=== PATIENT | male | born 1930 | race Caucasian/White ===

== ENCOUNTER 2017-10-21 11:05 | Emergency (ER) | payer MEDICARE ==
[2017-10-21 11:06] VITALS: BMI 30.7
[2017-10-21 11:16] VITALS: TEMP 97.5; O2SAT 95
[2017-10-21 12:45] LABS: BASO # 0.1 K/uL (0.0-0.2); EOS # 0.3 K/uL (0.0-0.7); EOS % 4.9 % (0.0-4.0); HEMATOCRIT 33.7 % (35.0-51.0); LYMPH # 1.7 K/uL (1.0-4.3); LYMPH % 28.3 % (20.0-40.0); MEAN CELL VOLUME 89.7 fL (80.0-94.0); MEAN CORPUSCULAR HEMOGLOBIN 29.7 pg (27.0-31.0); MEAN CORPUSCULAR HGB CONC 33.1 g/dL (33.0-37.0); MEAN PLATELET VOLUME 8.5 fL (7.2-11.7); MONO # 0.7 K/uL (0.0-0.8); MONO % 10.9 % (0.0-10.0); NRBC % 0.1 % (0.0-2.0); RED CELL DISTRIBUTION WIDTH 14.2 % (11.5-14.5); WHITE BLOOD COUNT 6.1 K/uL (4.8-10.8)
[2017-10-21 12:53] LABS: ALB/GLOB RATIO 0.9 (1.0-2.1); BILIRUBIN,TOTAL 0.6 mg/dL (0.2-1.3); CALCIUM 8.4 mg/dl (8.6-10.4); POTASSIUM 4.7 mmol/L (3.6-5.2); TOTAL PROTEIN 7.6 g/dL (6.3-8.3)
--- NOTE | 2017-10-21 13:29 | RAD ---
Chest x-ray two views History: Shortness of breath. Comparison: 08/05/2015 Findings: Mild venous congestion. Small nodular density at the left lung base may represent vessel on end. Left-sided pacemaker. Mild cardiomegaly. Calcification at the aortic knob. Degenerative changes in the spine and shoulders. Impression: Mild venous congestion.
[2017-10-21 14:00] VITALS: BP 107/60; PULSE 90; RESP 18
--- NOTE | 2017-10-21 14:53 | C.PDOC ---
History Of Present Illness 87yo male, presents for evaluation of persistent cough for the past month for which he has already seen his PCP 3-4 times. Patient denies any chest pain, shortness of breath, fever. He has no other complaints. Time Seen by Provider: 10/21/17 11:39 Chief Complaint (Nursing): Flu-like Symptoms History Per: Patient History/Exam Limitations: no limitations Onset/Duration Of Symptoms: Persistent Current Symptoms Are (Timing): Still Present Associated Symptoms: Cough. denies: Fever Past Medical History Reviewed: Historical Data, Nursing Documentation, Vital Signs Vital Signs: Last Vital Signs Temp 97.5 F L 10/21/17 11:13 Pulse 90 10/21/17 14:00 Resp 18 10/21/17 14:00 BP 107/60 10/21/17 14:00 Pulse Ox 95 10/21/17 14:55 - Medical History PMH: CAD, Cardia Arrhythmia, HTN, Peripheral Edema Surgical History: Appendectomy, Endoscopy, Pacemaker Family History: States: Unknown Family Hx - Social History Hx Tobacco Use: No Hx Alcohol Use: No Hx Substance Use: No - Immunization History Hx Tetanus Toxoid Vaccination: No Hx Influenza Vaccination: Yes Hx Pneumococcal Vaccination: Yes Review Of Systems Except As Marked, All Systems Reviewed And Found Negative. Constitutional: Negative for: Fever Cardiovascular: Negative for: Chest Pain Respiratory: Positive for: Cough. Negative for: Shortness of Breath Physical Exam - Physical Exam Appears: Non-toxic Skin: Normal Color Head: Atraumatic, Normacephalic Eye(s): bilateral: Normal Inspection Nose: Normal Neck: Supple Cardiovascular: Rhythm Regular Respiratory: Rales (minimal rales at bases) Extremity: Normal ROM, Pedal Edema (2+ pitting edema bilaterally), No Deformity Neurological/Psych: Oriented x3 ED Course And Treatment - Laboratory Results Result Diagrams: 10/21/17 12:37 10/21/17 12:37 O2 Sat by Pulse Oximetry: 95 (RA) Progress Note: Case discussed with Dr. Laws who knows patient well; reviwed lab results and agrees with plan to give Lasix 40 IVP and to discharge patient with prescription for lasix. Disposition - Disposition Referrals: Holli Nunez, [Non-Staff] - Disposition: HOME/ ROUTINE Disposition Time: 13:30 Condition: GOOD Additional Instructions: Thank you for letting us take care of you today. The emergency medical care you received today was directed at your acute symptoms. If you were prescribed any medication, please fill it and take as directed. It may take several days for your symptoms to resolve. Return to the Emergency Department if your symptoms worsen, do not improve, or if you have any other problems. Please contact your doctor or call one of the physicians/clinics you have been referred to that are listed on the Patient Visit Information form that is included in your discharge packet. Bring any paperwork you were given at discharge with you along with any medications you are taking to your follow up visit. Our treatment cannot replace ongoing medical care by a primary care provider (PCP) outside of the emergency department. [facility]. Follow up with your doctor as scheduled for re-evaluation. Prescriptions: Furosemide [Lasix] 40 mg PO DAILY #5 tab Instructions: Heart Failure (ED) Forms: Gen Discharge Inst Mongolian Print Language: SWEDISH - Clinical Impression Clinical Impression: Cough - Scribe Statement The provider has reviewed the documentation as recorded by the Arina Garcia Provider Attestation: All medical record entries made by the Arina were at my direction and personally dictated by me. I have reviewed the chart and agree that the record accurately reflects my personal performance of the history, physical exam, medical decision making, and the department course for this patient. I have also personally directed, reviewed, and agree with the discharge instructions and disposition.
== END 2017-10-21 14:25 | disposition home or self-care (01) ==
LOC: C.ER 11:05
DX: R05 Cough (principal); I10 Essential (primary) hypertension; I25.10 Atherosclerotic heart disease of native coronary artery without angina pectoris
CPT/HCPCS: 71020; 80053; 83880; 85025; 87804; 96374; 99285; J1940

== ENCOUNTER 2018-08-05 07:10 | Day surgery (SDC) | payer MEDICARE ==
[2018-08-05] MEDS ORDERED: Lidocaine 2 Grams in D5W 2,000 MG/500 ML BAG IV ONE (08:39)
[2018-08-05] MEDS ORDERED: Verapamil 2 ML ONE (08:39)
[2018-08-05] MEDS ORDERED: Lidocaine 2% PF (10 ml) Amp ONE (08:39)
[2018-08-05] MEDS ORDERED: Nitroglycerin 50mg in D5W 50 MG/250 ML BOTTLE IV ONE (08:40)
[2018-08-05] MEDS ORDERED: Midazolam 2 MG/2 ML VIAL ONE (08:40)
[2018-08-05] MEDS ORDERED: Iodixanol 320 MG/ML 100 ML BOTTLE IV ONE (08:40)
[2018-08-05 10:03] VITALS: BMI 42.2
== END 2018-08-05 14:20 | disposition home or self-care (01) ==
LOC: C.CATHLAB 07:10
PROVIDERS: ATTEND Internal Medicine Cardiovascular Disease
DX: I11.0 Hypertensive heart disease with heart failure (principal); I50.9 Heart failure, unspecified; I48.91 Unspecified atrial fibrillation; Z95.0 Presence of cardiac pacemaker; E11.9 Type 2 diabetes mellitus without complications
CPT/HCPCS: 82948; 93458; 99152; 99153; C1769; C1887; C1893; J1644; J2250; J3010; Q9967

== ENCOUNTER 2018-08-07 22:24 | Inpatient (IN) | payer MEDICARE ==
[2018-08-07 23:08] LABS: BASO % 0.3 % (0.0-2.0); EOS # 0.2 K/uL (0.0-0.7); HEMOGLOBIN 11.4 g/dL (12.0-18.0); LYMPH # 2.1 K/uL (1.0-4.3); LYMPH % 27.2 % (20.0-40.0); MEAN CELL VOLUME 91.3 fL (80.0-94.0); MEAN CORPUSCULAR HEMOGLOBIN 31.2 pg (27.0-31.0); MEAN CORPUSCULAR HGB CONC 34.2 g/dL (33.0-37.0); MEAN PLATELET VOLUME 8.2 fL (7.2-11.7); MONO # 0.6 K/uL (0.0-0.8); MONO % 7.8 % (0.0-10.0); NEUT # 4.8 K/uL (1.8-7.0); NEUT % 61.7 % (50.0-75.0); NRBC % 0.1 % (0.0-2.0); RBC 3.66 Mil/uL (4.40-5.90); RED CELL DISTRIBUTION WIDTH 15.4 % (11.5-14.5); WHITE BLOOD COUNT 7.7 K/uL (4.8-10.8)
--- NOTE | 2018-08-07 23:22 | C.PDOC ---
History Of Present Illness 88 year old male presents to the ER after his defibrillator fired twice within 15 minutes followed by a warm flushed feeling after each firing. Patient states he was sitting at home watching TV when it occurred. Patient was seen by Dr. Contreras 2 days ago. Denies LOC, SOB, nausea, or vomiting. <Duy Gibbons - Last Filed: 08/08/18 00:56> History Per: Patient History/Exam Limitations: no limitations Onset/Duration Of Symptoms: Mins Current Symptoms Are (Timing): Gone Associated Symptoms: denies: Nausea, Dyspnea, Diaphoresis, Syncope Modifying Factors: None Exacerbating Factors: None Alleviating Factors: None Recent travel outside of the [place]: No <Duy Gibbons - Last Filed: 08/08/18 00:56> <Cassandra Bustamante - Last Filed: 08/08/18 05:48> Time Seen by Provider: 08/07/18 23:03 Chief Complaint (Nursing): Chest Pain Past Medical History Reviewed: Historical Data, Nursing Documentation, Vital Signs Vital Signs: Last Vital Signs Temp 97.4 F L 08/07/18 22:43 Pulse 84 08/07/18 22:43 Resp 16 08/07/18 22:43 BP 133/66 08/07/18 22:43 Pulse Ox 97 08/07/18 22:43 - Medical History PMH: CAD, Cardia Arrhythmia, CHF (for 10 years), HTN, Peripheral Edema Surgical History: Appendectomy, Endoscopy, Pacemaker Family History: States: Unknown Family Hx - Social History Hx Tobacco Use: No Hx Alcohol Use: No Hx Substance Use: No - Immunization History Hx Tetanus Toxoid Vaccination: No Hx Influenza Vaccination: Yes Hx Pneumococcal Vaccination: Yes <Duy Gibbons - Last Filed: 08/08/18 00:56> Vital Signs: Last Vital Signs Temp 98.6 F 08/08/18 01:35 Pulse 86 08/08/18 03:24 Resp 20 08/08/18 03:24 BP 101/65 08/08/18 03:24 Pulse Ox 97 08/08/18 03:24 <Cassandra Bustamante - Last Filed: 08/08/18 05:48> Review Of Systems Constitutional: Negative for: Fever, Chills Cardiovascular: Positive for: Other (Defibrillator firing). Negative for: Chest Pain, Palpitations Respiratory: Negative for: Cough, Shortness of Breath Gastrointestinal: Negative for: Nausea, Vomiting Neurological: Negative for: Weakness, Numbness <Duy Gibbons - Last Filed: 08/08/18 00:56> Physical Exam - Physical Exam Appears: Non-toxic Skin: Normal Color, Warm, Dry Head: Atraumatic, Normacephalic Eye(s): bilateral: Normal Inspection Oral Mucosa: Moist Neck: Normal, Supple Chest: No Tenderness Cardiovascular: Rhythm Regular, Murmur (crescendo and decrescendo best heard at right upper chest) Respiratory: Normal Breath Sounds, No Rales, No Rhonchi, No Wheezing Gastrointestinal/Abdominal: Soft, No Tenderness Neurological/Psych: Oriented x3, Normal Speech <Duy Gibbons - Last Filed: 08/08/18 00:56> ED Course And Treatment - Laboratory Results Result Diagrams: 08/07/18 23:11 ECG Rhythm: AV Paced ECG Interpretation: Normal Rate From EC O2 Sat by Pulse Oximetry: 97 Pulse Ox Interpretation: Normal - Radiology CXR: Interpreted by Sc CXR Interpretation: Yes: No Acute Disease Reevaluation Time: 00:57 Reassessment Condition: Unchanged (remains asymptomatic) - Physician Consult Information Outcome Of Conversation: 2314: d/w Dr. Contreras- will eval in AM. 2315: calls for Dr. Laws, pending call-back and CMP <Duy Gibbons - Last Filed: 08/08/18 00:56> - Laboratory Results Result Diagrams: 08/07/18 23:11 08/08/18 00:46 <Cassandra Bustamante - Last Filed: 08/08/18 05:48> Progress - Re-Evaluation Re-evaluation Note: 08/08/18 04:45 CALLED TO BEDSIDE BY RN. PS RECUR AICD DC, FIRST SINCE ER EVAL. NOW ASYMPT. +VTACH ON MONITOR, RESOLVED AFTER AICD. REPEAT EKG PACED @ 87. FAMILY STATES AICD PLACED 1 YR AGO, TODAY FIRST DC SINCE PLACEMENT. S/P ANGIO 1 WK AGO FOR AORTIC STENOSIS EVAL PENDING VALVE PROCEDURE. 08/08/18 05:21 MULT RECUR VTACH. RECUR VTACH @ 180. SBP 110 .PS "I DONT FEEL ANYTHING BEFORE IT HAPPENS, IT JUST HAPPENS". D/W DR CONTRERAS AWARE OF ER FINIDNGS. D/W PACEMAKER REP JONNA [phone] FOR INTERROGATION. AMIODARONE BEING LOADED. 08/08/18 05:27 D/W DR RUSHING CF ICU WILL EVAL D/W DR BURROUGHS AWARE OF ER FINDINGS WILL ADMIT 08/08/18 05:48 ACCEPTED FOR ICU - Data Reviewed Data Reviewed: Lab, Diagnostic imaging, EKG, Old records - Critical Care Citical Care: Excluding Proc Time Critical Care Time: 90 minutes <Cassandra Bustamante - Last Filed: 08/08/18 05:48> Medical Decision Making Medical Decision Makin defib fired x 2 pending labs and adm <Duy Gibbons - Last Filed: 08/08/18 00:56> Disposition - Disposition Disposition Time: 01:00 <Duy Gibbons - Last Filed: 08/08/18 00:56> Counseled Patient/Family Regarding: Studies Performed, Diagnosis - POA Present On Arrival: None <Cassandra Bustamante - Last Filed: 08/08/18 05:48> - Disposition Disposition: HOSPITALIZED Condition: CRITICAL - Clinical Impression Clinical Impression: Defibrillator discharge, Ventricular tachycardia - Scribe Statement The provider has reviewed the documentation as recorded by the Scribe Santo Colbert All medical record entries made by the Scribe were at my direction and personally dictated by me. I have reviewed the chart and agree that the record accurately reflects my personal performance of the history, physical exam, medical decision making, and the department course for this patient. I have also personally directed, reviewed, and agree with the discharge instructions and disposition. <Duy Gibbons - Last Filed: 08/08/18 00:56>
[2018-08-07 23:26] LABS: INR 1.1; PROTHROMBIN TIME 11.8 SECONDS (9.7-12.2)
[2018-08-08 01:01] LABS: ALB/GLOB RATIO 1.1 (1.0-2.1); ALBUMIN 3.4 g/dL (3.5-5.0); ALT/SGPT 21 U/L (21-72); AST/SGOT 11 U/L (17-59); BLOOD UREA NITROGEN 33 mg/dL (9-20); CALCIUM 8.7 mg/dl (8.6-10.4); GFR NON-AFRICAN AMERICAN 57
[2018-08-08 01:13] LABS: B-TYPE NATRIURETIC PEPTIDE 1310 pg/mL (0-900)
[2018-08-08] MEDS ORDERED: Magnesium Sulfate 1 gm in D5W 1 GM/100 ML BAG IVPB ONE (05:19)
[2018-08-08] MEDS ORDERED: Magnesium Sulfate 1 gm in D5W 1 GM/100 ML BAG IV ONE (05:20)
[2018-08-08] MEDS ORDERED: Amiodarone 150mg/3 ml vial ONE (05:21)
[2018-08-08] MEDS ORDERED: Morphine 4 MG/ML VIAL ONE (06:08)
[2018-08-08] MEDS ORDERED: Heparin25000 units/250ml 1/2NS 25,000 UNITS/250 ML BAG IV PRN (06:09)
[2018-08-08] MEDS ORDERED: Lidocaine 100 MG in Sodium Chloride 0.9% 100 ML IV ONE ×3 (06:09→07:33)
[2018-08-08 06:27] VITALS: BMI 29.5
[2018-08-08] MEDS ORDERED: Morphine 4 MG/ML VIAL IV ONE (06:35)
--- NOTE | 2018-08-08 06:41 | CP.PCM.CON ---
History of Present Illness - History of Present Illness History of Present Illness: 88 year old male with HTN,CAD,Hyperlipidemia,arrhythmia, AICD,Pacemaker presents to the ER after his defibrillator fired twice within 15 minutes followed by a warm flushed feeling after each firing. Patient states he was sitting at home watching TV when it occurred. Denies LOC, SOB, nausea, or vomiting.In ER and ICU patient had multiple episodes of V tach Patient started on Amiodarone and lidocaine IV On 08/05/18 patient had a Cardiac cath which showed a tight aortic valve as reported by the son Review of Systems - Constitutional Constitutional: absent: Fever, Lethargy - EENT Eyes: absent: Blurred Vision Nose/Mouth/Throat: absent: Nasal Congestion, Hoarsness, Sore Throat - Cardiovascular Cardiovascular: Leg Edema. absent: Chest Pain, Palpitations - Respiratory Respiratory: absent: Cough, Dyspnea - Gastrointestinal Gastrointestinal: absent: Abdominal Pain, Nausea, Vomiting - Genitourinary Genitourinary: absent: Dysuria - Musculoskeletal Musculoskeletal: absent: Muscle Weakness - Integumentary Integumentary: absent: Rash - Neurological Neurological: absent: Dizziness, Weakness - Endocrine Endocrine: absent: Fatigue, Polyuria - Hematologic/Lymphatic Hematologic: absent: Easy Bleeding Past Patient History - Infectious Disease Hx of Infectious Diseases: None - Past Medical History & Family History Past Medical History?: Yes - Past Social History Smoking Status: Never Smoked Occupation: tax staff accountant Alcohol: None Drugs: Denies - CARDIAC Hx Cardia Arrhythmia: Yes Hx Congestive Heart Failure: Yes (for 10 years) Hx Hypertension: Yes Hx Pacemaker: Yes Hx Peripheral Edema: Yes - ENDOCRINE/METABOLIC Hx Endocrine Disorders: Yes Hx Diabetes Mellitus Type 2: Yes - MUSCULOSKELETAL/RHEUMATOLOGICAL Hx Musculoskeletal Disorders: Yes Hx Osteoarthritis: Yes (knees) - GASTROINTESTINAL Hx Gastrointestinal Disorders: Yes Hx Bowel Surgery: Yes - GENITOURINARY/GYNECOLOGICAL Hx Genitourinary Disorders: Yes Hx Prostate Problems: Yes - PSYCHIATRIC Hx Substance Use: No - SURGICAL HISTORY Hx Appendectomy: Yes - ANESTHESIA Hx Anesthesia: Yes Hx Anesthesia Reactions: No Hx Malignant Hyperthermia: No Meds Allergies/Adverse Reactions: Allergies Allergy/AdvReac Type Severity Reaction Status Date / Time Penicillins Allergy Intermediate RASH Verified 08/07/18 22:41 - Medications Medications: Current Medications Heparin Sodium (Porcine) (Heparin) 6,700 units 70 units/kg (6700 units) IV ONCE ONE Stop: 08/08/18 06:35 Amiodarone HCl 900 mg/ (Dextrose) 500 mls @ 33.33 mls/hr IV .Q15H1M ONE; Protocol Stop: 08/08/18 20:20 Heparin Sodium/Sodium Chloride (Heparin 64274 Units/250ml 1/2 Normal Saline) 25,000 units in 250 mls @ 11.539 mls/hr IV .[id number] PRN; Protocol PRN Reason: PROTOCOL Lidocaine 100 mg/ Sodium (Chloride) 105 mls @ 630 mls/hr IV ONCE ONE Stop: 08/08/18 06:10 Lidocaine HCl/Dextrose (Lidocaine 2 Grams In D5w) 2,000 mg in 500 mls @ 15 mls/hr IV .Q24H JANNA; Protocol Morphine Sulfate (Morphine) 4 mg IV ONCE ONE Stop: 08/08/18 06:36 Physical Exam - Constitutional Appears: No Acute Distress - Head Exam Head Exam: ATRAUMATIC, NORMAL INSPECTION, NORMOCEPHALIC - Eye Exam Eye Exam: EOMI, Normal appearance - ENT Exam ENT Exam: Mucous Membranes Moist - Neck Exam Neck exam: Positive for: Normal Inspection - Respiratory Exam Respiratory Exam: Clear to Auscultation Bilateral, NORMAL BREATHING PATTERN - Cardiovascular Exam Cardiovascular Exam: REGULAR RHYTHM - GI/Abdominal Exam GI & Abdominal Exam: Normal Bowel Sounds, Soft - Extremities Exam Extremities exam: Positive for: pedal edema. Negative for: calf tenderness - Neurological Exam Neurological exam: Alert, CN II-XII Intact, Oriented x3 - Skin Skin Exam: Normal Color, Warm Results - Vital Signs Recent Vital Signs: Last Vital Signs Temp 98.6 F 08/08/18 01:35 Pulse 120 H 08/08/18 06:12 Resp 16 08/08/18 06:12 BP 109/70 08/08/18 06:12 Pulse Ox 95 08/08/18 06:12 - Labs Result Diagrams: 08/07/18 23:11 08/08/18 00:46 Labs: Laboratory Results - last 24 hr 08/07/18 08/07/18 08/08/18 23:11 23:19 00:46 WBC 7.7 RBC 3.66 L Hgb 11.4 L Hct 33.4 L MCV 91.3 MCH 31.2 H MCHC 34.2 RDW 15.4 H Plt Count 186 MPV 8.2 Neut % (Auto) 61.7 Lymph % (Auto) 27.2 [place] % (Auto) 7.8 Eos % (Auto) 3.0 Baso % (Auto) 0.3 Neut # (Auto) 4.8 Lymph # (Auto) 2.1 [place] # (Auto) 0.6 Eos # (Auto) 0.2 Baso # (Auto) 0.0 PT 11.8 INR 1.1 APTT 23 Sodium 137 Potassium 3.9 Chloride 103 Carbon Dioxide 26 Anion Gap 12 BUN 33 H Creatinine 1.2 Est GFR ( Amer) > 60 Est GFR (Non-Af Amer) 57 Random Glucose 112 H Calcium 8.7 Magnesium Total Bilirubin 0.6 AST 11 L D ALT 21 D Alkaline Phosphatase 93 Troponin I 0.0490 NT-Pro-B Natriuret Pep 1310 H Total Protein 6.6 Albumin 3.4 L Globulin 3.2 Albumin/Globulin Ratio 1.1 08/08/18 04:56 WBC RBC Hgb Hct MCV MCH MCHC RDW Plt Count MPV Neut % (Auto) Lymph % (Auto) [place] % (Auto) Eos % (Auto) Baso % (Auto) Neut # (Auto) Lymph # (Auto) [place] # (Auto) Eos # (Auto) Baso # (Auto) PT INR APTT Sodium Potassium Chloride Carbon Dioxide Anion Gap BUN Creatinine Est GFR ( Amer) Est GFR (Non-Af Amer) Random Glucose Calcium Magnesium 1.9 Total Bilirubin AST ALT Alkaline Phosphatase Troponin I NT-Pro-B Natriuret Pep Total Protein Albumin Globulin Albumin/Globulin Ratio - EKG Data EKG Interpreted by: Myself Assessment & Plan - Assessment and Plan (Free Text) Assessment: 1.Ventricular arrhythmia with multiple AICD discharges on amiodarone and lidocaine drips 2.CAD /HTN/CHF/ Hyperlipidemia- restart home meds Discussed with Dr Garcia and Perrin
[2018-08-08] MEDS ORDERED: Lidocaine 2 Grams in D5W 2,000 MG/500 ML BAG IV SCH (06:45)
[2018-08-08] MEDS ORDERED: Sodium Chloride 0.9% 1,000 ML IV SCH (07:15)
--- NOTE | 2018-08-08 08:18 | RAD ---
Date of service: 08/08/2018 HISTORY: adm COMPARISON: 10/21/2017. FINDINGS: LUNGS: The lungs are clear. There are low lung volumes which may be related to poor inspiratory effort. PLEURA: No significant pleural effusion identified, no pneumothorax apparent. CARDIOVASCULAR: There is moderate cardiomegaly. There is a left-sided permanent pacing device. OSSEOUS STRUCTURES: No significant abnormalities. VISUALIZED UPPER ABDOMEN: Normal. OTHER FINDINGS: None. IMPRESSION: No acute findings. Persistent moderate cardiomegaly.
[2018-08-08 10:35] LABS: SQUAMOUS EPITHIAL < 1 /hpf (0-5); URINE BILIRUBIN NEGATIVE (NEGATIVE); URINE BLOOD NEGATIVE (NEGATIVE); URINE CLARITY Clear (Clear); URINE COLOR Yellow (YELLOW); URINE GLUCOSE (UA) NORMAL (Normal); URINE HYALINE CAST 0-2 /lpf (0-2); URINE LEUKOCYTE ESTERASE NEG Leu/uL (Negative); URINE PROTEIN NEGATIVE (NEGATIVE); URINE UROBILINOGEN NORMAL mg/dL (0.2-1.0)
[2018-08-08 13:47] VITALS: PULSE 80
[2018-08-08 13:59] VITALS: TEMP 91.8
[2018-08-08 14:25] LABS: BASO # 0.1 K/uL (0.0-0.2); BASO % 1.6 % (0.0-2.0); EOS # 0.1 K/uL (0.0-0.7); EOS % 1.6 % (0.0-4.0); HEMOGLOBIN 11.4 g/dL (12.0-18.0); MEAN CELL VOLUME 91.5 fL (80.0-94.0); MEAN CORPUSCULAR HEMOGLOBIN 30.9 pg (27.0-31.0); MEAN CORPUSCULAR HGB CONC 33.8 g/dL (33.0-37.0); MEAN PLATELET VOLUME 7.8 fL (7.2-11.7); MONO # 0.6 K/uL (0.0-0.8); MONO % 7.6 % (0.0-10.0); NEUT # 4.7 K/uL (1.8-7.0); NEUT % 62.2 % (50.0-75.0); RBC 3.69 Mil/uL (4.40-5.90); RED CELL DISTRIBUTION WIDTH 15.5 % (11.5-14.5); WHITE BLOOD COUNT 7.6 K/uL (4.8-10.8)
[2018-08-08 15:05] LABS: ALBUMIN 3.4 g/dL (3.5-5.0); ALT/SGPT 20 U/L (21-72); AST/SGOT 19 U/L (17-59); BLOOD UREA NITROGEN 32 mg/dL (9-20); CALCIUM 9.1 mg/dl (8.6-10.4); GFR NON-AFRICAN AMERICAN 52
[2018-08-08 16:20] LABS: CK-MB 3.57 ng/mL (0.0-3.38)
[2018-08-08 17:00] VITALS: BP 133/76; RESP 14; O2SAT 94
--- NOTE | 2018-08-11 10:58 | CARD ---
APPROVED REPORT Date of service: 08/08/2018 EKG Measurement Heart [id number] <Conclusion> Ventricular-paced rhythm with occasional supraventricular complexes Abnormal ECG
--- NOTE | 2018-08-11 11:03 | CARD ---
APPROVED REPORT Date of service: 08/07/2018 EKG Measurement Heart [id number] [place] [id number] <Conclusion> AV dual-paced rhythm with occasional ventricular-paced complexes and with occasional premature ventricular complexes Abnormal ECG
== END 2018-08-08 16:40 | disposition short-term general hospital (02) | DRG 315 ==
LOC: SUPCPDRO 22:24 → C.ER 22:24 → C.9E 08-08 00:23 → OBSVTOIN 08-08 00:23 → C.9I 08-08 06:12
PROVIDERS: ADMIT Internal Medicine; ATTEND Internal Medicine
DX: T82.198A Other mechanical complication of other cardiac electronic device, initial encounter (principal); I47.2 Ventricular tachycardia; I11.0 Hypertensive heart disease with heart failure; I50.9 Heart failure, unspecified; E11.9 Type 2 diabetes mellitus without complications; E78.5 Hyperlipidemia, unspecified; I25.10 Atherosclerotic heart disease of native coronary artery without angina pectoris; Y71.2 Prosthetic and other implants, materials and accessory cardiovascular devices associated with adverse incidents